=== PATIENT | male | born 1965 | race Caucasian/White ===

== ENCOUNTER 2018-11-10 05:11 | Inpatient (IN) ==
--- NOTE | 2018-11-10 05:17 | PROVIDER DOCUMENTATION ---
[id number] Abuse/Overdose - General Stated Complaint: overdose Time Seen by Provider: 11/10/18 05:11 Source: patient, EMS Unable to obtain history due to:: altered Allergies/Adverse Reactions: Allergies Allergy/AdvReac Type Severity Reaction Status Date / Time No Known Allergies Allergy Verified 09/28/18 18:01 Home Medications: Home Medication List Medication Instructions Recorded Confirmed Last Taken Type Amlodipine Besylate [Norvasc] 10 mg PO DAILY 03/15/15 11/10/18 09/28/18 History LISINOpril [Prinivil] 20 mg PO QHS 11/10/16 11/10/18 09/27/18 History Allopurinol 100 mg PO BID 11/10/18 11/10/18 Unknown History Topiramate 100 mg PO BID 11/10/18 11/10/18 Unknown History Lisinopril/Hydrochlorothiazide 1 ea PO DAILY 11/12/18 11/12/18 Unknown History [Lisinopril-Hctz 20-25 mg Tab] - History of Present Illness-Drug/Alcohol Nature of Presenting Problem: Presents to the EC after overdosing on Trazadone. Patient reportedly took 30 tablets of Trazodone. He states that he has been very stressed. He is unclear as to whether this is intentional. He states that he cannot tell me much else because his mouth is so dry. He will not provide any further information. No family at bedside. This episode of drinking or use began:: unsure Review of Systems - Adult - REVIEW OF SYSTEMS - ADULT ROS:: limited per condition Constitutional: reports: see HPI Past History - Adult - PAST MEDICAL HISTORY-ADULT Review of Records: reports: Old Records Reviewed Major Childhood Illnesses: reports: denies history Cardiovascular: reports: HTN Respiratory: reports: denies history Gastrointestinal: reports: denies history Obstetrical/Gynecological: reports: denies history Genitourinary: reports: denies history Musculoskeletal: reports: other (gout) Neurological: reports: headaches/migraines, Seizures/Epilepsy Psychiatric: reports: denies history, anxiety, depression Endocrine/Immune: reports: denies history Other Conditions: reports: denies history - PRIOR SURGERIES/PROCEDURES Surgical/Procedure History: reports: tonsillectomy, other (nasal surgery) - PRIOR HOSPITALIZATIONS Prior Hospitalizations: reports: for other non-related - IMMUNIZATION STATUS Childhood Immunizations: See Nurse Assessment Flu Vaccine: See Nurse Assessment - FAMILY HISTORY Family History: reviewed, not pertinent Physical Exam-General - PHYSICAL EXAM-ADULT Initial Vital Signs Reviewed: Yes - CONSTITUTIONAL General Appearance: no apparent distress, other (drowsy but arousable) - EYES Eyes: PERRL/EOMI - HEAD, EARS, NOSE, MOUTH & THROAT HENMT: normocephalic/atraumatic, moist mucous membranes - NECK Neck: non-tender, full range of motion, supple, normal inspection - RESPIRATORY Respiratory: chest non-tender, lungs clear, normal breath sounds - CARDIOVASCULAR Cardiovascular: normal peripheral pulses, regular rate, rhythm, no edema - GASTROINTESTINAL (ABDOMEN) Abdominal Exam: normal bowel sounds, non tender, soft - MUSCULOSKELETAL Back Exam: normal inspection Extremity: normal range of motion, non-tender, normal gait, normal inspection - SKIN Integumentary: normal color, warm/dry - NEUROLOGIC Neurologic: grossly normal - PSYCHIATRIC Psych/Mental Status: depressed affect, other (drowsy, difficult to assess) Progress - PLAN OF CARE/RESULTS Progress/Plan/Lab Results: Orders Category Date Time Status Admit [facility] Routine AdmDCTranf 11/10/18 12:39 Active Activity - Up with Assistance ORDERED Care 11/10/18 08:09 Active Apply Mechanical Device [QM] ORDERED Care 11/10/18 08:09 Active Intake and Output-Strict ORDERED Care 11/10/18 08:09 Active Vital Signs Order Q1H Care 11/10/18 08:09 Completed Z-Document. for Tele Applied ORDERED Care 11/10/18 08:09 Completed CHEST-PORTABLE [RAD] Routine Exams 11/11/18 06:00 Completed ACETAMINOPHEN [TDM] Stat Lab 11/10/18 05:15 Completed ALCOHOL BLOOD Stat Lab 11/10/18 05:15 Completed CBC WITH DIFF [HEME] Routine Lab 11/11/18 05:30 Completed CBC WITH DIFF [HEME] Stat Lab 11/10/18 05:15 Completed COMPREHENSIVE METABOLIC PANEL [CHEM] Routine Lab 11/11/18 05:30 Completed COMPREHENSIVE METABOLIC PANEL [CHEM] Stat Lab 11/10/18 05:15 Completed MAGNESIUM [CHEM] Routine Lab 11/10/18 09:08 Completed MAGNESIUM [CHEM] Routine Lab 11/11/18 05:30 Completed POTASSIUM [CHEM] Timed Lab 11/10/18 09:08 Completed SALICYLATES [TDM] Routine Lab 11/11/18 05:30 Completed SALICYLATES [TDM] Stat Lab 11/10/18 05:15 Completed Tylenol [ACETAMINOPHEN] [TDM] Routine Lab 11/11/18 05:30 Completed URINALYSIS W/POSS RFLX CULT [URINALYSIS] Stat Lab 11/10/18 05:30 Completed URINE DRUG SCREEN Stat Lab 11/10/18 05:30 Completed 0.9% Sodium Chloride Inj [Ns] 1,000 ml Med 11/10/18 08:09 Discontinued IV 125 mls/hr Potassium Chloride E.r. [Klor-Con] Med 11/10/18 06:03 Discontinued 60 meq PO NOW ONE Telemetry [OM.EQ] Routine Oth 11/10/18 08:09 Active EKG [EKG] Stat Ther 11/10/18 05:21 Draft EKG [EKG] Stat Ther 11/10/18 08:09 Completed Transfer/Admit Order [TRANSFER] Routine Transfer 11/10/18 07:35 Completed Result Diagrams: 11/12/18 05:30 11/12/18 05:30 - EKG 1 Time of EKG reading by physician:: 05:25 EKG Read and Signed by:: Kelsey Elizabeth EKG Interpretation (*Must complete 3 of following elements*): Abnormal Rate: 78 Rhythm: nsr QRS: other (PROLONGED qt) - CHANGE OF SHIFT REPORT (ED Provider) 1 Report Given and Care Transferred to:: Dr. Mccurdy Time of Transfer: 07:00 Comment: Discussed with Annabelle mo with plan for admission to Dr. Rios. Departure - Departure Date of Disposition Decision: 11/10/18 Time of Disposition Decision: 07:11 DIAGNOSIS: Overdose Disposition: ADMITTED INPATIENT 09 Certified Medical Emergency: Emergent Condition: Stable - Critical Care Note This patient required my direct & personal management of CC.: No Attestation - Physician/ MONIE Attestation Patient care was provided by Advanced Practice Provider:: No The physician spent face to face time with patient:: Yes Advanced Practice Provider documentation review:: Supervising physician onsite and consulted in the evaluation and care of this patient. The physician did have a face to face encounter with the patient.
[2018-11-10 05:31] LABS: BASO# 0.02 X1000 (0.0-0.2); BASO% 0.4 % (0.0-0.8); EOS# 0.02 X1000 (0.0-0.7); EOS% 0.4 % (0.0-10.0); HEMATOCRIT 43.9 % (42.0-52.0); HEMOGLOBIN 15.3 g/dL (14.0-18.0); LYMPH# 1.96 X1000 (1.2-3.4); LYMPH% 41.6 % (20.5-51.1); MCH 31.3 PG (27-31); MCHC 34.9 g/dL (33-37); MCV 89.8 FL (81-99); MONO# 0.42 X1000 (0.11-0.59); MONO% 8.9 % (1.7-9.3); MPV 10.9 FL (7.4-10.4); NEUT# 2.29 X1000 (1.4-6.5); NEUT% 48.7 % (42.2-75.2); PLT 138 X1000 (130-400); RBC 4.89 XMIL (4.7-6.1); RDW 12.9 % (11.5-14.5); WBC 4.71 X1000 (4.8-10.8)
[2018-11-10 05:46] LABS: ACETAMINOPHEN < 1.2 ug/mL (10-30); AGAP 17; ALB/GLOB RATIO 1.7; ALBUMIN 4.5 g/dL (3.5-5.0); ALKALINE PHOSPHATASE 79 U/L (32-122); BUN 9 mg/dL (8-22); CALCIUM 9.4 mg/dL (8.8-10.2); CHLORIDE 104 mmol/L (98-107); COSMO 285; ESTIMATED GFR > 60; GLUCOSE 125 mg/dL (70-104); GOT 23 U/L (10-34); GPT 18 U/L (10-44); SALICYLATES < 3.00 mg/dL (3-10); SODIUM 143 mmol/L (136-145); TCO2 22 mmol/L (25-35); TOTAL BILIRUBIN 0.48 mg/dL (0.20-1.00); TOTAL PROTEIN 7.1 g/dL (6.3-8.3)
[2018-11-10] MEDS ORDERED: KLOR-CON PO ONE (06:03)
[2018-11-10 06:11] LABS: URINE SOURCE CLEAN CATCH
[2018-11-10 06:14] LABS: BILIRUBIN URINE NEGATIVE (NEGATIVE); BLOOD URINE NEGATIVE (NEGATIVE); COLOR YELLOW; GLUCOSE URINE NEGATIVE (NEGATIVE); KETONE URINE NEGATIVE (NEGATIVE); LEUKOCYTES URINE NEGATIVE (NEGATIVE); NITRITE URINE NEGATIVE (NEGATIVE); PROTEIN URINE NEGATIVE (NEGATIVE); SP GRAVITY URINE 1.009; TURBIDITY URINE CLEAR (CLEAR); UROBILINOGEN URINE NORMAL (NORMAL)
[2018-11-10 06:15] LABS: UR EPITHELIAL CELLS <10 /HPF (<10); URINE BACTERIA NEGATIVE /HPF; URINE RBC <10 /HPF (<10); URINE WBC <10 /HPF (<10)
--- NOTE | 2018-11-10 06:39 | EKG Report ---
Test Performed on : 11/10/2018 05:20:10 AM Test Reason : OVERDOSE Blood Pressure : / mmHG Vent. Rate : 078 BPM Atrial Rate : 078 BPM P-R Int : 174 ms QRS Dur : 096 ms QT Int : 486 ms P-R-T Axes : 052 014 013 degrees QTc Int : 554 ms Normal sinus rhythm. Moderate voltage criteria for LVH, may be normal variant Prolonged QT Abnormal ECG When compared with ECG of 13-OCT-2018 18:50, (Unconfirmed) QT has lengthened Unconfirmed Result
[2018-11-10 07:03] LABS: UR AMPHETAMINES QUAL NONE DETECTED (NONE DETECT); UR BARBITUATES QUAL NONE DETECTED (NONE DETECT); UR BENZODIAZEPIN QUAL NONE DETECTED (NONE DETECT); UR CANNABINOIDS QUAL NONE DETECTED (NONE DETECT); UR COCAINE QUAL NONE DETECTED (NONE DETECT); UR METHADONE QUAL NONE DETECTED (NONE DETECT); UR OPIATES QUAL PRESUMPTIVE POSITIVE (NONE DETECT); UR OXYCODONE QUAL NONE DETECTED (NONE DETECT); UR PCP QUAL NONE DETECTED (NONE DETECT)
--- NOTE | 2018-11-10 08:19 | EKG Report ---
Test Performed on : 11/10/2018 08:14:15 AM Test Reason : follow up Blood Pressure : / mmHG Vent. Rate : 072 BPM Atrial Rate : 072 BPM P-R Int : 180 ms QRS Dur : 092 ms QT Int : 472 ms P-R-T Axes : 032 006 -10 degrees QTc Int : 516 ms Normal sinus rhythm. Voltage criteria for left ventricular hypertrophy Nonspecific T wave abnormality Prolonged QT Abnormal ECG When compared with ECG of 10-NOV-2018 05:20, (Unconfirmed) No significant change was found Confirmed by Saleem Patricia MD ([id number]) on 11/12/2018 12:13:19 PM
[2018-11-10] MEDS: NS 1,000 ML IV SCH ×2 (09:54→18:47)
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
[2018-11-10] MEDS: ZYLOPRIM PO SCH (21:08)
[2018-11-10] MEDS: PRINIVIL PO SCH (21:08)
[2018-11-11] MEDS: NS 1,000 ML IV SCH ×2 (02:15→09:17)
[2018-11-11 06:21] LABS: BASO# 0.01 X1000 (0.0-0.2); BASO% 0.2 % (0.0-0.8); EOS# 0.02 X1000 (0.0-0.7); EOS% 0.3 % (0.0-10.0); HEMATOCRIT 40.7 % (42.0-52.0); HEMOGLOBIN 13.7 g/dL (14.0-18.0); LYMPH# 2.73 X1000 (1.2-3.4); LYMPH% 41.3 % (20.5-51.1); MCH 31.4 PG (27-31); MCHC 33.7 g/dL (33-37); MCV 93.3 FL (81-99); MONO# 0.52 X1000 (0.11-0.59); MONO% 7.9 % (1.7-9.3); MPV 11.7 FL (7.4-10.4); NEUT# 3.33 X1000 (1.4-6.5); NEUT% 50.3 % (42.2-75.2); PLT 120 X1000 (130-400); RBC 4.36 XMIL (4.7-6.1); RDW 13.3 % (11.5-14.5); WBC 6.61 X1000 (4.8-10.8)
[2018-11-11 06:43] LABS: ACETAMINOPHEN < 1.2 ug/mL (10-30); AGAP 10; ALB/GLOB RATIO 1.7; ALBUMIN 3.8 g/dL (3.5-5.0); ALKALINE PHOSPHATASE 71 U/L (32-122); BUN 11 mg/dL (8-22); CALCIUM 8.8 mg/dL (8.8-10.2); CHLORIDE 112 mmol/L (98-107); COSMO 287; ESTIMATED GFR > 60; GLUCOSE 119 mg/dL (70-104); GOT 18 U/L (10-34); GPT 14 U/L (10-44); MAGNESIUM 2.2 mg/dL (1.5-2.7); POTASSIUM 4.1 mmol/L (3.5-5.1); SALICYLATES < 3.00 mg/dL (3-10); SODIUM 144 mmol/L (136-145); TCO2 22 mmol/L (25-35); TOTAL BILIRUBIN 0.16 mg/dL (0.20-1.00); TOTAL PROTEIN 6.1 g/dL (6.3-8.3)
--- NOTE | 2018-11-11 08:18 | Diag Imaging Result Doc PS360 ---
EXAM: CHEST-PORTABLE INDICATION: follow up TECHNIQUE: One view COMPARISON: 10/13/2018 FINDINGS: There is trace atelectasis at the left lung base. The lungs are grossly clear, otherwise. There is no discrete pleural fluid collection or pneumothorax. Cardiac silhouette is stable. There is no evidence of cardiomegaly. Central vasculature is unremarkable. IMPRESSION: Minimal left basilar atelectasis. No evidence of acute pathology, otherwise. Electronically signed by Philipp Hale 11/11/2018 8:16 AM
[2018-11-11] MEDS ORDERED: PRINZIDE 20/12.5MG PO SCH (09:00)
[2018-11-11] MEDS: ZYLOPRIM PO SCH ×2 (09:17→20:39)
[2018-11-11] MEDS: NORVASC PO SCH (12:31)
[2018-11-11] MEDS: APRESOLINE IV PRN (12:32)
--- NOTE | 2018-11-11 13:22 | PROGRESS NOTE ---
DATE: 11/11/2018 SUBJECTIVE: This is a 52-year-old white male patient of Dr. Hoffman who came in yesterday after he has been suffering from depression, chronic headaches. One of his sons has been diagnosed with paranoid schizophrenia. He is about to see Dr. Cortes. He was seen by Dr. Hoffman 3 months ago. He attempted overdose with swallowing 50 mg tablets of trazodone, about 30. He was admitted in the ICU. He did not show any evidence of oversedation. He is awake, follows verbal commands. He was very irritable last night. He wants to eat. Blood pressure is running high. PAST MEDICAL HISTORY: Reviewed. PAST SURGICAL HISTORY: Reviewed. MEDICATIONS: Reviewed. ALLERGIES: Not known. REVIEW OF SYSTEMS: Chronic headaches. Cardiopulmonary: No chest pain or shortness of breath, PND or orthopnea. GI: No nausea or abdominal pain. No swelling of legs. OBJECTIVE: Vital signs: Temperature is 98, blood pressure is 180/105, pulse oximetry 99%. HEENT: Atraumatic and normocephalic. Pupils equal and reactive to light. Nose and throat within normal limits. Neck is supple. No lymphadenopathy. Chest: Bilateral air entry. Heart sounds are regular. Belly is soft, nontender. Good bowel sounds. No peripheral edema. Multiple tattoos noted on the right arm. DIAGNOSTIC DATA: CBC with white cell count of 6.6, hematocrit 40.7, platelets 120. Sodium is 144, potassium 4.1, chloride 112, BUN is 11, creatinine 1.0, glucose 119. LFTs were normal. Urinalysis is clear. Urine tox screen with salicylate negative, presumptive positive opiates, acetaminophen level is normal. Urine tox screen is otherwise negative. Serum alcohol: None detected. Chest x-ray with no evidence of acute pathology. EKG is normal sinus rhythm, nothing acute. ASSESSMENT AND PLAN: A 52-year-old white gentleman admitted to the hospital with overdose with underlying depression and needs a psychiatric evaluation. Currently he is medically stable. 1. For hypertension, the patient is taking lisinopril with hydrochlorothiazide, amlodipine, hydralazine as needed. 2. Chronic headaches. Taking tramadol and Topamax. 3. Gout, on allopurinol. 4. The patient did not have any symptoms or signs of oversedation. We will repeat the labs in the morning. Discussed the plan of care with the patient's sister at bedside. Level of documentation is 35 minutes. cc: MD Estrada Young MD
[2018-11-11] MEDS: CATAPRES PO PRN (14:53)
[2018-11-11] MEDS: PRINIVIL PO SCH (20:39)
[2018-11-12 04:37] LABS: ALLEN TEST YES; BE 0.3 mmoll (-3.0-3.0); BLOOD TYPE ARTERIAL; HCO3-(ACT) 25.1 mmoll (20.0-26.0); METHB 1.2 % (0.0-1.5); O2(CT) 20.2 mL/dL (15.0-23.0); O2HB 96.2 % (95.0-99.0); PCO2(98.6) 33 mmHg (35-45); PO2(98.6) 100 mmHg (60-100); SAMPLE BLOOD; SAO2 98.1 % (95.0-100.0); THB 14.9 g/dL (11.5-17.4); pH(98.6) 7.46 (7.35-7.45)
[2018-11-12 04:39] LABS: MODALITY ROOM AIR
[2018-11-12] MEDS: CATAPRES PO PRN (05:01)
[2018-11-12 06:23] LABS: BASO# 0.02 X1000 (0.0-0.2); BASO% 0.3 % (0.0-0.8); EOS# 0.03 X1000 (0.0-0.7); EOS% 0.4 % (0.0-10.0); HEMATOCRIT 41.8 % (42.0-52.0); HEMOGLOBIN 14.5 g/dL (14.0-18.0); IMM GRAN# 0.02 X1000 (0.0-0.04); IMM GRAN% 0.3 % (0.0-0.5); LYMPH# 2.98 X1000 (1.2-3.4); LYMPH% 41.2 % (20.5-51.1); MCH 31.2 PG (27-31); MCHC 34.7 g/dL (33-37); MCV 89.9 FL (81-99); MONO# 0.59 X1000 (0.11-0.59); MONO% 8.1 % (1.7-9.3); MPV 12.1 FL (7.4-10.4); NEUT% 49.7 % (42.2-75.2); PLT 144 X1000 (130-400); RBC 4.65 XMIL (4.7-6.1); RDW 13.1 % (11.5-14.5); WBC 7.24 X1000 (4.8-10.8)
[2018-11-12 06:42] LABS: INR 0.95; PROTIME 13.4 Seconds (11.0-16.0)
[2018-11-12 06:43] LABS: HEMOGLOBIN A1C 5.3 % (4.8-6.0)
[2018-11-12 06:52] LABS: AGAP 12; ALB/GLOB RATIO 1.7; ALBUMIN 4.1 g/dL (3.5-5.0); ALKALINE PHOSPHATASE 65 U/L (32-122); BUN 14 mg/dL (8-22); CALCIUM 8.9 mg/dL (8.8-10.2); CHLORIDE 107 mmol/L (98-107); COSMO 282; CREATININE 1.2 mg/dL (0.7-1.2); ESTIMATED GFR > 60; GLUCOSE 96 mg/dL (70-104); GOT 15 U/L (10-34); GPT 14 U/L (10-44); MAGNESIUM 2.1 mg/dL (1.5-2.7); POTASSIUM 3.5 mmol/L (3.5-5.1); SODIUM 141 mmol/L (136-145); TCO2 22 mmol/L (25-35); TOTAL BILIRUBIN 0.26 mg/dL (0.20-1.00); TOTAL PROTEIN 6.5 g/dL (6.3-8.3)
[2018-11-12] MEDS ORDERED: PRINZIDE 10/12.5MG PO SCH (09:00)
[2018-11-12] MEDS: NORVASC PO SCH (09:35)
[2018-11-12] MEDS: ZYLOPRIM PO SCH (09:35)
[2018-11-12] MEDS: APRESOLINE IV PRN (10:24)
--- NOTE | 2018-11-12 11:11 | PROGRESS NOTE ---
DATE: 11/12/2018 SUBJECTIVE: The patient is doing very well, eating well. Blood pressure is controlled. Off IV fluids. Complains of headaches. The rest of the review of systems is normal. OBJECTIVE: Temperature is 97, pulse 66, blood pressure 140/86. HEENT: Within normal limits. Neck: Supple. Chest is clear. Heart sounds are regular. Belly is soft and nontender. No obvious deficits. DIAGNOSTIC DATA: CBC shows white cell count of 7.3, hematocrit 41.8, platelets 144. PT and INR are normal. ABG shows pH is 7.46, pCO2 is 33, pO2 is 112. SMA-7 is normal. LFTs were normal. Cardiac enzymes were normal. Liver function tests and thyroid function tests were normal. ASSESSMENT AND PLAN: 1. Hypertension is well controlled. Continue present treatment. Lisinopril 20 in the night, lisinopril 10/12.5 two in the morning, clonidine 0.1 t.i.d., amlodipine 10 daily, 2. Gout, on Zyloprim. 3. Chronic headaches. He is on Topamax. 4. Depression with suicidal overdose. Medically stable. Psychiatric consult was evaluated. Electronic Pagination System Operator as well. The patient is medically stable to be transferred to psychiatry. The patient is willing to go for psychiatric help. Waiting to be transferred, either to [facility] or [facility]. Dr. Hoffman is going to follow up. cc: MD Estrada Young MD
[2018-11-12 17:36] VITALS: BP 148/113
[2018-11-12] MEDS ORDERED: TOPAMAX PO SCH (21:00)
--- NOTE | 2018-11-14 13:21 | DISCHARGE SUMMARY ---
ADMISSION DATE: 11/10/2018 DISCHARGE DATE: 11/12/2018 DISCHARGING DIAGNOSIS: Major depression with suicidal overdose of trazodone 50 mg tablets each for #30. SECONDARY DIAGNOSES: 1. Chronic alcoholism. 2. Hypertension. 3. Depression. 4. Gout. 5. Chronic headaches. 6. Chronic back pain. 7. Vitamin D deficiency. BRIEF HISTORY: Please see the H and P that was done by Hospitalist. In brief, he is a 52 white male patient of Dr. Hoffman, came in with depression symptoms with overdose with trazodone. Apparently, he did not have any significant side effects. He was admitted in ICU. Obviously, the patient was medically stable other than high blood pressure. Rest of the labs were normal. Psych evaluation was obtained. The patient was transferred to the [facility] in a stable condition. LABORATORY DATA: CBC: White cell count 7.2, hematocrit 41, platelets 144,000. PT 13, INR 0.95. ABG on room air, pH is 7.46, pCO2 33, PO2 100 on 21%. Sodium 141, potassium 3.5, chloride 107, BUN 14, creatinine 1.2, glucose 96. Liver function tests were normal. Urinalysis is clear. Salicylates is less than 3. Opiates are positive. Oxycodone, methadone negative. Acetaminophen level 1.2. Urine toxicology screen was negative. Alcohol was negative. Chest x-ray was stable. DISCHARGE INSTRUCTIONS: The patient was medically stable and discharging with these following instructions. 1. Amlodipine 10 daily. 2. Lisinopril 20 at bedtime. 3. Allopurinol 100 p.o. b.i.d. 4. Topamax 100 p.o. b.i.d. 5. Lisinopril/hydrochlorothiazide 20/25 daily. 6. Tramadol as needed. 7. Vitamin D 5000 units daily. FOLLOWUP: He is going to follow up Dr. Matt Hoffman or Dr. John Sykes, and he has being transferred to the [facility] in a stable condition. cc: MD Estrada Young MD
== END 2018-11-12 17:54 | DRG 918 ==
LOC: SUPCPDRO → ED 05:11 → EDIPHOLD 07:54 → SUATTDRO 07:54 → SUPCPDRO 07:54 → ICU 11:19
PROVIDERS: ADMIT Internal Medicine; ATTEND Internal Medicine
CPT/HCPCS: 71010; 71045; 80053; 80101; 80196; 80301; 80307; 80320; 80324; 80329; 80345; 80346; 80353; 80358; 80361; 80365; 81001; 82003; 82055; 82805; 83036; 83735; 83992; 84132; 84439; 84484; 84550; 85025; 85610; 93005; A9270; G0431; G0434; G0479; G0480; G6038; G6039; G6040; J0360; J7030